=== PATIENT | male | born 1985 | race Caucasian/White ===

== ENCOUNTER 2022-05-04 01:17 | Inpatient (IN) | payer OTHER ==
[2022-05-04] MEDS ORDERED: hydrALAZINE 20 MG/ML VIAL SLOW IVP PRN (04:11)
[2022-05-04] MEDS ORDERED: Sodium Chloride 0.9% 1,000 ML IV SCH (04:15)
[2022-05-04 04:18] VITALS: BMI 38.0
[2022-05-04] MEDS: Ondansetron PF 4 MG/2 ML Vial IVP PRN ×4 (05:00→23:34)
[2022-05-04] MEDS: Morphine 2 MG/ML VIAL SLOW IVP PRN ×5 (05:01→23:28)
[2022-05-04 05:57] LABS: #Lymphocytes 0.8 thou/uL (1.20-3.40); #Monocytes 0.1 thou/uL (0.11-0.59); #Neutrophils 17.5 thou/uL (1.40-6.50); %Basophils 0.1 % (0.0-1.0); %Eosinophils 0.1 % (0.0-10.0); %Lymphocytes 4.3 % (21.0-51.0); %Monocytes 0.5 % (0.0-10.0); Hemoglobin 16.5 g/dL (14.0-18.0); Mean Corpuscular HGB CONC 34.1 g/dL (32.0-36.0); Mean Corpuscular Hemoglobin 31.5 pg (27.0-31.0); Mean Corpuscular Volume 92.4 fl (78.0-98.0); Mean Platelet Volume 7.9 fL (7.4-10.4); Platelet Count 265 10x3/uL (130-400); RBC Distribution Width 11.8 % (11.5-14.5); Red Blood Cell (RBC) Count 5.22 mill/uL (4.70-6.10); White Blood Cell (WBC) Count 18.4 10x3/uL (4.8-10.8)
[2022-05-04 06:08] LABS: Anion Gap 12 mmol/L (10-20); BUN (Urea Nitrogen) 14 mg/dL (8.9-20.6); Calc. Creatinine Clearance 180 mL/min (70-130); Calcium 9.4 mg/dL (7.8-10.44); Carbon Dioxide 24 mmol/L (22-29); Chloride 107 mmol/L (98-107); Estimated GFR 98; Glucose 156 mg/dL (70-105); Potassium 3.8 mmol/L (3.5-5.1); Sodium 139 mmol/L (136-145)
[2022-05-04] MEDS: Amlodipine 10 MG TAB PO SCH (08:24)
[2022-05-04] MEDS: Famotidine 20 MG TAB PO SCH ×2 (08:24→20:29)
[2022-05-04] MEDS ORDERED: Vancomycin 1 GM in Premix Bag 1 BAG IVPB SCH (09:00)
[2022-05-04] MEDS ORDERED: Promethazine HCl 25 MG in Sodium Chloride 0.9% 50 ML IVPB SCH (10:00)
[2022-05-04] MEDS: D5 1/2 NS w/20 mEq KCL 1,000 ML IV SCH ×2 (12:17→20:30)
[2022-05-04] MEDS ORDERED: cefTRIAXone\\ROCEPHIN 2 GM in Sodium Chloride 0.9% 100 ML IVPB SCH (13:00)
[2022-05-04] MEDS ORDERED: Vancomycin 1.5 GRAM/300 ML BAG 1.5 GM in Premix Bag 1 BAG IVPB SCH (14:00)
[2022-05-04] MEDS ORDERED: NIFEdipine XL 30 MG TAB PO PRN (14:37)
[2022-05-04] MEDS ORDERED: Labetalol HCl 100 MG/20 ML VIAL SLOW IVP PRN (15:44)
[2022-05-05] MEDS: Morphine 2 MG/ML VIAL SLOW IVP PRN ×4 (03:54→19:29)
[2022-05-05] MEDS: D5 1/2 NS w/20 mEq KCL 1,000 ML IV SCH ×3 (03:58→17:11)
[2022-05-05] MEDS: Ondansetron PF 4 MG/2 ML Vial IVP PRN ×2 (05:30→10:32)
[2022-05-05] MEDS: Amlodipine 10 MG TAB PO SCH (08:24)
[2022-05-05] MEDS: Famotidine 20 MG TAB PO SCH ×2 (08:24→19:33)
[2022-05-05 08:45] LABS: #Lymphocytes 2.7 thou/uL (1.20-3.40); #Monocytes 0.9 thou/uL (0.11-0.59); #Neutrophils 8.5 thou/uL (1.40-6.50); %Basophils 0.1 % (0.0-1.0); %Eosinophils 0.2 % (0.0-10.0); %Lymphocytes 21.9 % (21.0-51.0); %Monocytes 7.4 % (0.0-10.0); %Neutrophils 70.4 % (42.0-75.0); Hemoglobin 15.3 g/dL (14.0-18.0); Mean Corpuscular HGB CONC 33.1 g/dL (32.0-36.0); Mean Corpuscular Hemoglobin 31.2 pg (27.0-31.0); Mean Corpuscular Volume 94.2 fl (78.0-98.0); Mean Platelet Volume 7.7 fL (7.4-10.4); Platelet Count 243 10x3/uL (130-400); RBC Distribution Width 11.8 % (11.5-14.5); Red Blood Cell (RBC) Count 4.92 mill/uL (4.70-6.10); White Blood Cell (WBC) Count 12.1 10x3/uL (4.8-10.8)
[2022-05-05 09:03] LABS: ALT (SGPT) 67 U/L (8-55); AST (SGOT) 32 U/L (5-34); Albumin 4.2 g/dL (3.5-5.0); Alkaline Phosphatase 60 U/L (40-110); Anion Gap 10 mmol/L (10-20); BUN (Urea Nitrogen) 13 mg/dL (8.9-20.6); CRP (Inflammatory) 0.58 mg/dL (= or < 0.5); Calc. Creatinine Clearance 165 mL/min (70-130); Calcium 9.9 mg/dL (7.8-10.44); Carbon Dioxide 27 mmol/L (22-29); Chloride 107 mmol/L (98-107); Estimated GFR 89; Globulin 2.4 g/dL (2.4-3.5); Glucose 105 mg/dL (70-105); Potassium 4.3 mmol/L (3.5-5.1); Protein, Total 6.6 g/dL (6.0-8.3); Sodium 140 mmol/L (136-145)
[2022-05-05] MEDS ORDERED: Dihydroergotamine Mesylate 1 MG/ML AMP SC SCH ×2 (12:00→18:45)
[2022-05-05] MEDS: cefTRIAXone\\ROCEPHIN 1 GM in Sodium Chloride 0.9% 100 ML IVPB SCH (13:12)
[2022-05-05 15:33] LABS: HBSAg Index 0.26 S/CO (0-0.99); HIV (1/2) Antibody/Antigen Non-Reactive (NonReactive); HIV 1/2 INDEX 0.28 S/CO (<1.00); Hep B Surf Ag Non-Reactive S/CO (NonReactive); Hep C IgG Ab Non-Reactive (NonReactive); Hep C Index 0.05 S/CO (0-0.79)
[2022-05-05 15:49] LABS: Hep B Surf AB Reactive (NonReactive)
[2022-05-05] MEDS ORDERED: Promethazine HCl 25 MG in Sodium Chloride 0.9% 50 ML IVPB PRN (17:18)
[2022-05-06] MEDS: Morphine 2 MG/ML VIAL SLOW IVP PRN ×4 (00:01→18:43)
[2022-05-06] MEDS: D5 1/2 NS w/20 mEq KCL 1,000 ML IV SCH ×2 (00:05→07:49)
[2022-05-06] MEDS: Famotidine 20 MG TAB PO SCH (07:46)
[2022-05-06] MEDS: Escitalopram Oxalate 20 mg Tablet PO SCH (07:47)
[2022-05-06] MEDS ORDERED: diphenhydrAMINE 25 MG CAP PO PRN (09:09)
[2022-05-06 09:16] LABS: #Eosinphils 0.1 thou/uL (0.0-0.7); #Lymphocytes 1.9 thou/uL (1.20-3.40); #Monocytes 0.8 thou/uL (0.11-0.59); #Neutrophils 6.5 thou/uL (1.40-6.50); %Basophils 0.4 % (0.0-1.0); %Eosinophils 0.7 % (0.0-10.0); %Lymphocytes 20.5 % (21.0-51.0); %Monocytes 8.7 % (0.0-10.0); %Neutrophils 69.8 % (42.0-75.0); Hemoglobin 16.8 g/dL (14.0-18.0); Mean Corpuscular HGB CONC 32.6 g/dL (32.0-36.0); Mean Corpuscular Hemoglobin 30.5 pg (27.0-31.0); Mean Corpuscular Volume 93.4 fl (78.0-98.0); Mean Platelet Volume 7.4 fL (7.4-10.4); Platelet Count 265 10x3/uL (130-400); RBC Distribution Width 11.5 % (11.5-14.5); White Blood Cell (WBC) Count 9.4 10x3/uL (4.8-10.8)
[2022-05-06 09:31] LABS: Anion Gap 11 mmol/L (10-20); BUN (Urea Nitrogen) 13 mg/dL (8.9-20.6); Calc. Creatinine Clearance 170 mL/min (70-130); Calcium 10.2 mg/dL (7.8-10.44); Carbon Dioxide 28 mmol/L (22-29); Chloride 105 mmol/L (98-107); Estimated GFR 92; Glucose 90 mg/dL (70-105); Potassium 4.3 mmol/L (3.5-5.1); Sodium 140 mmol/L (136-145)
[2022-05-06 11:01] LABS: Syphilis Antibody Nonreactive (Nonreactive); Syphilis Antibody Index 0.03 S/CO (<1.00 Non-Reactive)
[2022-05-06] MEDS: cefTRIAXone\\ROCEPHIN 1 GM in Sodium Chloride 0.9% 100 ML IVPB SCH (14:49)
[2022-05-06] MEDS: Fioricet 325/50/40 mg Tablet PO PRN ×2 (16:12→22:38)
[2022-05-06 20:13] VITALS: TEMP 98
[2022-05-07] MEDS: Morphine 2 MG/ML VIAL SLOW IVP PRN ×2 (02:15→11:41)
[2022-05-07] MEDS: Acetaminophen 325 MG TAB PO PRN ×2 (02:22→11:44)
[2022-05-07 07:37] LABS: #Eosinphils 0.2 thou/uL (0.0-0.7); #Lymphocytes 2.3 thou/uL (1.20-3.40); #Monocytes 0.8 thou/uL (0.11-0.59); #Neutrophils 5.9 thou/uL (1.40-6.50); %Basophils 0.2 % (0.0-1.0); %Eosinophils 1.7 % (0.0-10.0); %Lymphocytes 24.5 % (21.0-51.0); %Monocytes 8.9 % (0.0-10.0); %Neutrophils 64.7 % (42.0-75.0); ALT (SGPT) 105 U/L (8-55); AST (SGOT) 42 U/L (5-34); Albumin 4.6 g/dL (3.5-5.0); Alkaline Phosphatase 74 U/L (40-110); Anion Gap 11 mmol/L (10-20); BUN (Urea Nitrogen) 14 mg/dL (8.9-20.6); CRP (Inflammatory) Less than 0.50 mg/dL (= or < 0.5); Calc. Creatinine Clearance 165 mL/min (70-130); Calcium 10.4 mg/dL (7.8-10.44); Carbon Dioxide 30 mmol/L (22-29); Chloride 101 mmol/L (98-107); Estimated GFR 89; Globulin 2.8 g/dL (2.4-3.5); Glucose 89 mg/dL (70-105); Mean Corpuscular Hemoglobin 30.8 pg (27.0-31.0); Mean Corpuscular Volume 93.4 fl (78.0-98.0); Mean Platelet Volume 7.7 fL (7.4-10.4); Platelet Count 280 10x3/uL (130-400); Protein, Total 7.4 g/dL (6.0-8.3); RBC Distribution Width 11.5 % (11.5-14.5); Red Blood Cell (RBC) Count 5.52 mill/uL (4.70-6.10); Sodium 138 mmol/L (136-145); White Blood Cell (WBC) Count 9.2 10x3/uL (4.8-10.8)
[2022-05-07 07:44] VITALS: BP 124/80
[2022-05-07] MEDS: Escitalopram Oxalate 20 mg Tablet PO SCH (08:40)
[2022-05-07] MEDS: Fioricet 325/50/40 mg Tablet PO PRN ×2 (08:41→14:19)
[2022-05-07] MEDS: cefTRIAXone\\ROCEPHIN 1 GM in Sodium Chloride 0.9% 100 ML IVPB SCH (14:19)
== END 2022-05-07 15:35 | disposition home or self-care (01) | DRG 552 ==
LOC: T4-B 03:41 → OBSVTOIN 11:24
PROVIDERS: ADMIT Internal Medicine; ATTEND Internal Medicine
DX: M54.81 Occipital neuralgia (principal); N17.9 Acute kidney failure, unspecified; Z20.822 Contact with and (suspected) exposure to COVID-19; E86.0 Dehydration; I10 Essential (primary) hypertension; R94.5 Abnormal results of liver function studies; E66.9 Obesity, unspecified; F12.10 Cannabis abuse, uncomplicated; F41.9 Anxiety disorder, unspecified; F13.10 Sedative, hypnotic or anxiolytic abuse, uncomplicated; Z68.38 Body mass index [BMI] 38.0-38.9, adult; Z88.6 Allergy status to analgesic agent; Z88.8 Allergy status to other drugs, medicaments and biological substances; Z79.899 Other long term (current) drug therapy
CPT/HCPCS: 36415; 70551; 71045; 80048; 80053; 85025; 86140; 86706; 86780; 86803; 87340; 87389; 87804; 96372; 96374; 96375; 96376; G0378; J0360; J0696; J1110; J1650; J2272; J2405; J2550; J3370; J3480; J3490; J7050

== ENCOUNTER 2024-11-25 09:43 | Emergency (ER) | payer OTHER ==
[2024-11-25] MEDS ORDERED: HYDROcodone/Acetaminophen 5/325 mg Tablet ONE (11:23)
[2024-11-25] MEDS ORDERED: Methocarbamol 500 MG TAB ONE (11:29)
== END 2024-11-25 11:33 | disposition home or self-care (01) ==
LOC: ERS 09:43
DX: S83.92XA Sprain of unspecified site of left knee, initial encounter (principal); X50.9XXA Other and unspecified overexertion or strenuous movements or postures, initial encounter
CPT/HCPCS: 99283

== ENCOUNTER 2024-12-09 13:46 | Outpatient (CLI) | payer OTHER | END 2024-12-09 13:47 | disposition home or self-care (01) | LOC: BICMRI 13:46 | PROVIDERS: ATTEND Nurse Practitioner | DX: M25.511 Pain in right shoulder (principal); S43.431A Superior glenoid labrum lesion of right shoulder, initial encounter; S46.111A Strain of muscle, fascia and tendon of long head of biceps, right arm, initial encounter; M25.711 Osteophyte, right shoulder; M19.011 Primary osteoarthritis, right shoulder ==